=== PATIENT | female | born 1955 | race African-American/Black ===

== ENCOUNTER 2016-08-26 09:49 | Day surgery (SDC) | payer OTHER ==
[~2016-08-26] VITALS: Ht 165.1 cm; Wt 89.5 kg
[2016-08-26 10:50] VITALS: Ht 165.1 cm; Wt 89.5 kg
[2016-08-26] MEDS ORDERED: CENTRUM SILVER (10:56)
[2016-08-26] MEDS ORDERED: METOPROLOL (10:56)
[2016-08-26] MEDS ORDERED: ASPIRIN PAL (10:56)
[2016-08-26] MEDS ORDERED: LISINOPRIL (10:56)
[2016-08-26] MEDS ORDERED: ATORVASTATIN (10:56)
[2016-08-26] MEDS ORDERED: METHIMAZOLE (10:56)
[2016-08-26 11:24] VITALS: BP 160/76; PULSE 67; RESP 24
[2016-08-26] MEDS ORDERED: LIDOCAINE 2% (SDV) 5 ML INJ ONE (11:25)
[2016-08-26] MEDS ORDERED: PROPOFOL 20 ML ONE (11:25)
[2016-08-26 12:37] VITALS: BP 126/73; PULSE 68; RESP 20
--- NOTE | 2016-08-26 18:59 | GILP ---
DATE OF PROCEDURE: 08/26/2016 NAME OF PROCEDURE: Colonoscopy. SURGEON: Chucho Silver MD PREOPERATIVE DIAGNOSIS: Screening colonoscopy. POSTOPERATIVE DIAGNOSES: 1. Colonoscopy all the way to the cecum. 2. Poor prep, making the exam suboptimal. 3. Internal hemorrhoids. INDICATION FOR THE PROCEDURE: Ms. Daria Hernandez is a 61-year-old female patient who was noted to h ave positive occult blood in stool. She never had screening colonoscopy. The patient was scheduled for screening colonoscopy. The procedure and possible complications were well explained to the pat ient, she understood and consented to the procedure. DESCRIPTION OF PROCEDURE: Under the influence of anesthesia, the colonoscope was carefully introduc ed in the rectum and under direct vision, it was advanced all the way to the cecum. FINDINGS: The patient had poor prep, making the exam suboptimal. She was noted to have internal he morrhoids. No gross neoplasm was identified. She tolerated the procedure very well and there was no complication from the procedure. At the end of the procedures, she was awake with stable vital signs and she was discharged home to the care of her family. IMPRESSION: 1. Colonoscopy all the way to the cecum. 2. Poor prep making the exam suboptimal. 3. Internal hemorrhoids. PLAN: Because of the poor prep and suboptimal nature of the examination, the patient will need repe at colonoscopy with better preparation in 1 to 2 years. Dictated By: CHUCHO PHILIP/JOAO Conf#: [id number] DID#: [id number] CC: CHUCHO SILVER MD;*EndCC*
--- NOTE | 2016-08-26 20:13 | CONS ---
DATE OF ADMISSION: 08/26/2016 DATE OF CONSULTATION: TYPE OF CONSULTATION: Preoperative Gastroenterology I thank you very much for this kind referral. HISTORY OF PRESENT ILLNESS: Ms. Daria Hernandez is a 61-year-old female patient who has been referre d to me for further evaluation of positive occult blood in stool. There is no past history of colon neoplasm. The patient never had screening colonoscopy. Her appetite has been good, and she is not losing any weight. She does not have any upper abdominal pain, nausea, or vomiting. There is no h istory of peptic ulcer disease. The patient has been taking baby aspirin a day. There is no histor y of gallstones. She does not have any fever, chills, or jaundice. There is no history of liver di sease. She is hypertensive. She is not a diabetic. She does not have any heart disease or lung pr oblem. There is no history of kidney disease. She has got hyperthyroidism. She also has hyperlipi demia. She is status post hysterectomy. SOCIAL HISTORY: She is a nonsmoker. She does not abuse alcohol. FAMILY HISTORY: Negative for gastrointestinal tract neoplasm. ALLERGIES: THERE IS NO HISTORY OF SIGNIFICANT DRUG ALLERGY. MEDICATIONS 1. Lisinopril. 2. Metoprolol. 3. Methimazole. 4. Atorvastatin. 5. Aspirin 81 mg. PHYSICAL EXAMINATION VITAL SIGNS: She is 5 feet 5 inches tall, and she weighs 189 pounds. HEART: Examination of the heart reveals normal first and second heart sounds. LUNGS: Clear. ABDOMEN: Soft without any distention. Liver and spleen are not palpable. There are no masses. Th ere is no focal tenderness. Normal bowel sounds are heard. RECTAL: Examination deferred per the patient's request. It will be done at the time of colonoscopy . CENTRAL NERVOUS SYSTEM: Does not reveal any focal neurological deficit. IMPRESSION: 1. Positive occult blood in stool. 2. The patient never had screening colonoscopy. 3. Hypertension. 4. Hyperthyroidism. 5. Hyperlipidemia. 6. Status post hysterectomy. 7. The patient is on baby aspirin a day. PLAN: 1. Screening colonoscopy. 2. Because of the obesity with a short thick neck, she needs monitored anesthesia care for the proc edure. The procedure and possible complications are well explained to the patient. The patient understands and consents to the procedure. I thank you once again. With warmest personal regards, Dictated By: CHUCHO PHILIP/JOAO Conf#: [id number] DID#: [id number]
== END 2016-08-26 18:00 | disposition home or self-care (01) ==
LOC: GIL 09:49
PROVIDERS: ATTEND Internal Medicine Gastroenterology
DX: Z12.11 Encounter for screening for malignant neoplasm of colon (principal); K64.8 Other hemorrhoids; I10 Essential (primary) hypertension; E66.9 Obesity, unspecified; Z68.32 Body mass index [BMI] 32.0-32.9, adult; E78.5 Hyperlipidemia, unspecified; Z79.82 Long term (current) use of aspirin
CPT/HCPCS: 45378; Z7610